=== PATIENT | male | born 1960 | race Caucasian/White ===

== ENCOUNTER 2016-05-04 18:14 | Emergency (ER) | payer OTHER ==
[2016-05-04 18:24] VITALS: TEMP 97.8; BMI 22.6
--- NOTE | 2016-05-04 19:01 | PDOC ---
History of Present Illness <Daksha Mac - Last Filed: 05/04/16 20:46> <Lauren Gonzalez - Last Filed: 05/04/16 22:50> - General Chief Complaint: Chest Pain Stated Complaint: CHEST DISCOMFORT Time Seen by Provider: 05/04/16 18:44 - History of Present Illness Initial Comments: 05/04/16 19:52 The patient is a 55 year old male with a past medical hx of hypercholesterolemia who presents to the ED complaining of left sided chest pain since 1300 this afternoon. The patient states he was standing up when all of a sudden he felt a pinching sensation in the left side of his chest. He reports the pain at the time was a 9/10 in severity but right now he rates the pain as a 3/10. He states he went to see his PCP, Dr. Lisa, in his office this afternoon. He reports Dr. Lisa sent him to the ED to rule out PE. The patient states for the past few years he has been having this pinching chest pain. He notes it has never been this severe and usually only lasts a few seconds. He reports he has followed up with a Pediatrics Teacher for his symptoms. He notes he took two Advil, which he thinks helped relieve his pain. The patient denies nausea, vomiting, diarrhea, constipation, diaphoresis, palpitations, cough, SOB. Allergies: Penicillin Social: Denies toxic habits (Daksha Mac) Past History <Daksha Mac - Last Filed: 05/04/16 20:46> - Past Medical History Hypercholesterolemia: Yes - Surgical History Abdominal Surgery: Yes (HERNIA) - Psycho/Social/Smoking Cessation Hx Suicidal Ideation: No Smoking History: Never smoked Information on smoking cessation initiated: No <Lauren Gonzalez - Last Filed: 05/04/16 22:50> - Past Medical History Allergies/Adverse Reactions: Allergies Allergy/AdvReac Type Severity Reaction Status Date / Time Penicillins Allergy Verified 05/04/16 18:24 Home Medications: Ambulatory Orders Rosuvastatin [Crestor -] 5 mg PO HS 05/04/16 Review of Systems - Review of Systems Able to Perform ROS?: Yes <Daksha Mac - Last Filed: 05/04/16 20:46> <Lauren Gonzalez - Last Filed: 05/04/16 22:50> - Review of Systems Comments:: 05/04/16 19:53 CONSTITUTIONAL: Absent: fever, chills, diaphoresis, generalized weakness, malaise, loss of appetite HEENT: Absent: rhinorrhea, nasal congestion, throat pain, throat swelling, difficulty swallowing, mouth swelling, ear pain, eye pain, visual Changes CARDIOVASCULAR: +Chest pain. Absent: syncope, palpitations, irregular heart rate, lightheadedness, peripheral edema RESPIRATORY: Absent: cough, shortness of breath, dyspnea with exertion, orthopnea, wheezing, stridor, hemoptysis GASTROINTESTINAL: Absent: abdominal pain, abdominal distension, nausea, vomiting, diarrhea, constipation, melena, hematochezia GENITOURINARY: Absent: dysuria, frequency, urgency, hesitancy, hematuria, flank pain, genital pain MUSCULOSKELETAL: Absent: myalgia, arthralgia, joint swelling SKIN: Absent: rash, itching, pallor NEUROLOGIC: Absent: headache, focal weakness or paresthesias, dizziness, unsteady gait, seizure, mental status changes, bladder or bowel incontinence PSYCHIATRIC: Absent: anxiety, depression, suicidal or homicidal ideation, hallucinations. (Daksha Mac) *Physical Exam <Daksha Mac - Last Filed: 05/04/16 20:46> <Lauren Gonzalez - Last Filed: 05/04/16 22:50> - Vital Signs Last Vital Signs Temp Pulse Resp BP Pulse Ox 97.8 F 91 H 18 162/92 100 05/04/16 18:19 05/04/16 18:19 05/04/16 18:19 05/04/16 18:19 05/04/16 18:19 - Physical Exam Comments: 05/04/16 19:53 GENERAL: Well developed, well nourished. Awake and alert. No acute distress. HEENT: Normocephalic, atraumatic. PERRLA, EOMI. No conjunctival pallor. Sclera are non- icteric. Moist mucous membranes. Oropharynx is clear. NECK: Supple. Full ROM. No JVD. Carotid pulses 2+ and symmetric, without bruits. No thyromegaly. No lymphadenopathy. CARDIOVASCULAR: Regular rate and rhythm. No murmurs, rubs, or gallops. Distal pulses are 2+ and symmetric. PULMONARY: No evidence of respiratory distress. Lungs clear to auscultation bilaterally. No wheezing, rales or rhonchi. ABDOMINAL: Soft. Non-tender. Non-distended. No rebound or guarding. No organomegaly. Normoactive bowel sounds. MUSCULOSKELETAL Normal range of motion at all joints. No bony deformities or tenderness. No CVA tenderness. EXTREMITIES: No cyanosis. No clubbing. No edema. No calf tenderness. SKIN: Warm and dry. Normal capillary refill. No rashes. No jaundice. NEUROLOGICAL: Alert, awake, appropriate. Cranial nerves 2-12 intact. No deficits to light touch and temperature in face, upper extremities and lower extremities. No motor deficits in the in face, upper extremities and lower extremities. PSYCHIATRIC: Cooperative. Good eye contact. Appropriate mood and affect. (Daksha Mac) ED Treatment Course - LABORATORY CBC & Chemistry Diagram: 05/04/16 19:20 05/04/16 19:17 <Daksha Mac - Last Filed: 05/04/16 20:46> - LABORATORY CBC & Chemistry Diagram: 05/04/16 19:20 05/04/16 19:17 <Lauern Gonzalez - Last Filed: 05/04/16 22:50> - ADDITIONAL ORDERS Additional order review: Laboratory Results 05/04/16 05/04/16 05/04/16 19:17 19:17 19:17 INR 1.09 Sodium 142 Potassium 3.9 Chloride 106 Carbon Dioxide 29 Anion Gap 7 L BUN 11 Creatinine 0.9 Creat Clearance w eGFR > 60 Random Glucose 121 H Calcium 8.9 Magnesium 1.9 Total Bilirubin 1.1 H AST 17 ALT 26 Alkaline Phosphatase 97 Creatine Kinase 209 Creatine Kinase Index 0.7 CK-MB (CK-2) 1.365 CK-MB (CK-2) Rel Index Cancelled Troponin I < 0.02 B-Natriuretic Peptide 30.92 Total Protein 7.3 Albumin 4.4 05/04/16 19:20 RBC 4.72 MCV 95.3 MCHC 33.8 RDW 12.8 MPV 9.4 Neutrophils % 74.4 Lymphocytes % 16.2 Monocytes % 8.7 Eosinophils % 0.3 Basophils % 0.4 - RADIOLOGY Radiology Studies Ordered: Category Date Time Status CHEST CT WITH CONTRAST [CT] Stat CT Scan 05/04/16 21:04 Completed CHEST X-RAY PORTABLE* [RAD] Stat Radiology 05/04/16 19:14 Completed Radiograph Interpretation: 05/04/16 20:46 Portable chest x ray A frontal view of the chest was obtained in upright position The cardiac silhouette is within normal limits in size. The lung is clear. Mediastinum and visualized osseous structures appear intact . Impression: Unremarkable examination without evidence of focal infiltrates Reported By: Monica Rodriguez MD 05/04/161954 (Daksha Mac) - Medications Given in the ED: ED Medications Discontinued Medications Generic Name Dose Route Start Last Admin Trade Name Freq PRN Reason Stop Dose Admin Aspirin 162 mg 05/04/16 19:14 05/04/16 19:27 Asa - PO 05/04/16 19:15 162 mg ONCE ONE Administration Sodium Chloride 1,000 mls @ 1,000 mls/hr 05/04/16 19:21 05/04/16 20:50 Normal Saline - IV 05/04/16 20:20 1,000 mls/hr ASDIR STA Administration Medical Decision Making <Daksha Mac - Last Filed: 05/04/16 20:46> <Lauren Gonzalez - Last Filed: 05/04/16 22:50> - Medical Decision Making 05/04/16 22:43 this 55 yo male was referred to ER to obtain a CT of the chest to r/o pulmonary embolism. Dr Fowler states this pt already had a cardiac workup recently but has evidence of pulmonary strain on his ekg and wants to r/o PE -ct chest NEGATIVE for PE,infiltrates -no acute sichemia on ekg, negative cardiac enzyme (Lauren Gonzalez) *DC/Admit/Observation/Transfer <Daksha Mac - Last Filed: 05/04/16 20:46> <Lauren Gonzalez - Last Filed: 05/04/16 22:50> Diagnosis at time of Disposition: Chest pain Qualifiers: Chest pain type: unspecified Qualified Code(s): R07.9 - Chest pain, unspecified - Discharge Dispostion Disposition: HOME Condition at time of disposition: Stable - Referrals Referrals: Simone Lisa MD [Primary Care Provider] - - Patient Instructions Printed Discharge Instructions: DI for Atypical Chest Pain Additional Instructions: please followup with Dr Sandigurskyi return if your symptoms worsen - Attestations Scribe Attestion: 05/04/16 19:53 Documentation prepared by Daksha Mac, acting as medical donation professional for Lauren Gonzalez MD/. (Bubba,Daksha)
[2016-05-04] MEDS ORDERED: ASPIRIN 81 MG CHEWABLE TABLETS PO ONE (19:14)
[2016-05-04] MEDS ORDERED: SODIUM CHLORIDE 1,000 ML IV STA (19:21)
[2016-05-04] MEDS ORDERED: ASPIRIN 81 MG CHEWABLE TABLETS ONE (19:26)
[2016-05-04 20:20] LABS: BASOPHIL 0.4 % (0-2.0); EOSINOPHIL 0.3 % (0-4.5); MCH 32.2 pg (25.7-33.7); MCHC 33.8 g/dl (32.0-35.9); MEAN CELL VOLUME 95.3 fl (80-96); MEAN PLT VOLUME 9.4 fl (7.5-11.1); NEUTROPHILS 74.4 % (42.8-82.8); PLATELET COUNT 178 K/MM3 (134-434); RDW 12.8 % (11.9-15.9); WHITE BLOOD COUNT 5.1 K/mm3 (4.0-10.0)
[2016-05-04 20:31] LABS: INR 1.09 (0.82-1.09)
[2016-05-04 20:39] LABS: ALBUMIN 4.4 g/dl (3.4-5.0); ANION GAP 7 (8-16); BILIRUBIN,TOTAL 1.1 mg/dL (0.2-1.0); CALCIUM 8.9 mg/dL (8.5-10.1); CO2 29 mmol/L (21-32); CREATININE 0.9 mg/dL (0.7-1.3); GLUCOSE,RANDOM 121 mg/dL (74-106); MAGNESIUM 1.9 mg/dL (1.8-2.4); SGOT/AST 17 U/L (15-37); SGPT/ALT 26 U/L (12-78); TOT PROT 7.3 g/dl (6.4-8.2)
[2016-05-04 20:42] LABS: ALK PHOS 97 U/L (45-117); TROPONIN I < 0.02 ng/ml (0.00-0.05)
[2016-05-04 22:50] VITALS: BP 134/80; PULSE 77
--- NOTE | 2016-05-05 14:10 | EKG ---
Test Reason : Blood Pressure : / mmHG Vent. Rate : 098 BPM Atrial Rate : 098 BPM P-R Int : 144 ms QRS Dur : 086 ms QT Int : 354 ms P-R-T Axes : 075 -31 045 degrees QTc Int : 451 ms NORMAL SINUS RHYTHM BIATRIAL ENLARGEMENT LEFT AXIS DEVIATION ABNORMAL ECG NO PREVIOUS ECGS AVAILABLE Confirmed by YE PLAZA MD ([id number]) on 05/05/2016 2:09:33 PM Referred By: Confirmed By:YE PLAZA MD
== END 2016-05-04 22:59 | disposition home or self-care (01) ==
LOC: JER 18:14
PROC: 3E0337Z Introduction of Electrolytic and Water Balance Substance into Peripheral Vein, Percutaneous Approach (ICD-10-PCS; principal; 2016-05-04)
DX: R07.9 Chest pain, unspecified (principal); E78.00 Pure hypercholesterolemia, unspecified
CPT/HCPCS: 36415; 71010-TC; 71260-TC; 80053; 82550; 82553; 83735; 83880; 84484; 85025; 85610; 93005; 93010; 99285-25

== ENCOUNTER 2019-01-23 09:23 | Day surgery (SDC) | payer OTHER ==
[2019-01-22 12:56] VITALS: BMI 20.7
[2019-01-23 10:32] VITALS: TEMP 98.6
[2019-01-23 11:28] VITALS: BP 111/60; PULSE 59
--- NOTE | 2019-01-24 17:37 | PATH ---
Surgical Pathology Report Patient Name: MARTIN STANTON [facility]. Rec. #: [id number] /Age/Gender: 1960 (Age: 58) / M Account: [id number] Location: U-ENDOSCOPY Taken: 01/23/2019 Received: 01/23/2019 Reported: 01/24/2019 Physicians: Isas Arias D.O. Specimen(s) Received A: RIGHT COLON POLYP B: SPLENIC FLEXURE POLYP Clinical History History of colon polyps Postoperative diagnosis: Colon polyps, diverticulosis, hemorrhoids Final Diagnosis A. COLON, RIGHT, POLYPS, BIOPSY: TUBULAR ADENOMA(S). B. COLON, SPLENIC FLEXURE, POLYP, POLYPECTOMY: TUBULAR ADENOMA. Electronically Signed Vy Larson M.D. Gross Description A. Received in formalin, labeled "right colon biopsy" are 2 giordano, irregular portions of soft tissue averaging 0.2 cm. in greatest dimension. The specimens are submitted in toto in one cassette. B. Received in formalin, labeled "splenic flexure polyp" is a giordano, irregular portion of soft tissue measuring 0.2 cm. in greatest dimension. The specimen is submitted in toto in one cassette. /01/23/2019 saudi01/23/2019
== END 2019-01-23 11:15 | disposition home or self-care (01) ==
LOC: JASU-ENDO 09:23
PROVIDERS: ATTEND Internal Medicine Gastroenterology
PROC: 0DBF8ZX Excision of Right Large Intestine, Via Natural or Artificial Opening Endoscopic, Diagnostic (ICD-10-PCS; 2019-01-23)
PROC: 0DBL8ZX Excision of Transverse Colon, Via Natural or Artificial Opening Endoscopic, Diagnostic (ICD-10-PCS; principal; 2019-01-23 09:45)
DX: Z12.11 Encounter for screening for malignant neoplasm of colon (principal); Z86.010 Personal history of colon polyps; K57.30 Diverticulosis of large intestine without perforation or abscess without bleeding; K64.8 Other hemorrhoids; K63.5 Polyp of colon
CPT/HCPCS: 88305-TC

== ENCOUNTER 2021-08-20 04:27 | Day surgery (SDC) | payer OTHER ==
[2021-08-13 16:19] VITALS: BMI 20.7
[2021-08-20 09:24] VITALS: TEMP 98
[2021-08-20 10:00] VITALS: BP 129/72; PULSE 68
== END 2021-08-20 10:24 | disposition home or self-care (01) ==
LOC: JASU-ENDO 04:27
PROVIDERS: ATTEND Internal Medicine Gastroenterology
PROC: 0DB78ZX Excision of Stomach, Pylorus, Via Natural or Artificial Opening Endoscopic, Diagnostic (ICD-10-PCS; 2021-08-20)
PROC: 0DB68ZX Excision of Stomach, Via Natural or Artificial Opening Endoscopic, Diagnostic (ICD-10-PCS; 2021-08-20)
PROC: 0DB38ZX Excision of Lower Esophagus, Via Natural or Artificial Opening Endoscopic, Diagnostic (ICD-10-PCS; 2021-08-20)
PROC: 0DB98ZX Excision of Duodenum, Via Natural or Artificial Opening Endoscopic, Diagnostic (ICD-10-PCS; principal; 2021-08-20 08:30)
DX: K21.00 Gastro-esophageal reflux disease with esophagitis, without bleeding (principal); K29.50 Unspecified chronic gastritis without bleeding
CPT/HCPCS: 88305-TC; 88342-TC

== ENCOUNTER 2022-02-04 04:18 | Day surgery (SDC) | payer OTHER ==
[2022-02-02 16:24] VITALS: BMI 20.9
[2022-02-04 13:07] VITALS: TEMP 97
[2022-02-04 14:17] VITALS: BP 128/73; PULSE 66; RESP 18
== END 2022-02-04 14:05 | disposition home or self-care (01) ==
LOC: JASU-ENDO 04:18
PROVIDERS: ATTEND Internal Medicine Gastroenterology
PROC: 0DJD8ZZ Inspection of Lower Intestinal Tract, Via Natural or Artificial Opening Endoscopic (ICD-10-PCS; principal; 2022-02-04 11:00)
DX: Z12.11 Encounter for screening for malignant neoplasm of colon (principal); K57.30 Diverticulosis of large intestine without perforation or abscess without bleeding; K64.8 Other hemorrhoids; Z86.010 Personal history of colon polyps; I10 Essential (primary) hypertension